=== PATIENT | female | born 1935 | race Caucasian/White ===

== ENCOUNTER 2022-08-04 12:37 | Inpatient (IN) | payer OTHER ==
[~2022-08-04] VITALS: Ht 154.9 cm; Wt 54.9 kg
[~2022-08-04 12:37] MED LIST: FERR-69 PO; OXYB5TAB16 PO; PRAV40TA PO
[2022-08-04 12:45] VITALS: BP_SYST 138
[2022-08-04] MEDS ORDERED: ONDANSETRON HCL 4 MG/2 ML VIAL IVP ONE (13:45)
[2022-08-04] MEDS ORDERED: MAG HYDROX/AL HYDROX/SIMETH 30 ML, DICYCLOMINE HCL 20 MG, LIDOCAINE VISCOUS 2% 15ML (PO... PO ONE ×3 (13:45)
[2022-08-04] MEDS ORDERED: NACL 0.9% 1,000 ML IV ONE ×2 (13:45→16:00)
[2022-08-04 13:59] LABS: BASOPHILS % (AUTO) 0.4 % (0.0-2.0); EOSINOPHILS # (AUTO) 0.1 K/uL (0.0-0.4); EOSINOPHILS % (AUTO) 1.6 % (0.0-4.0); HEMATOCRIT 40.1 % (36-48); LYMPHOCYTES # (AUTO) 1.9 K/uL (1.0-5.5); LYMPHOCYTES % (AUTO) 21.7 % (20.5-51.5); MEAN CORPUSCULAR VOLUME 83 fL (79.0-98.0); MONOCYTES # (AUTO) 0.7 K/uL (0.0-1.0); MONOCYTES % (AUTO) 7.5 % (1.7-9.3); NEUTROPHILS # (AUTO) 6.1 K/uL (1.8-7.7); NEUTROPHILS % (AUTO) 68.8 % (40.0-70.0); PLATELET COUNT (AUTO) 222 K/uL (130-430); RED BLOOD CELL COUNT(AUTO) 4.86 MIL/uL (4.2-6.2); RED CELL DISTRIBUTION WIDTH 14.3 % (9.0-15.0); WHITE BLOOD COUNT (AUTO) 8.8 K/uL (4.8-10.8)
[2022-08-04 14:37] LABS: ANION GAP 9 (5-15); CALCIUM 9.6 mg/dL (8.4-11.0); CHLORIDE 104 mmol/L (98-107); CREATININE 0.92 mg/dL (0.55-1.30); GLUCOSE 89 mg/dL (70-99); POTASSIUM 4.3 mmol/L (3.5-5.1); UREA NITROGEN, BLOOD 17 mg/dL (8-21)
[2022-08-04 14:47] LABS: BILIRUBIN,URINE NEGATIVE (NEGATIVE); CLARITY/URINE SL CLOUDY (CLEAR); COLOR,URINE YELLOW (YELLOW); GLUCOSE,URINE NEGATIVE (NEGATIVE); KETONES,URINE NEGATIVE (NEGATIVE); LEUKOCYTE ESTERASE ,URINE 2+ (NEGATIVE); NITRITE, URINE NEGATIVE (NEGATIVE); PROTEIN URINE NEGATIVE (NEGATIVE); UROBILINOGEN,URINE 0.2 (0.2-1.0)
[2022-08-04 14:52] LABS: ALANINE AMINOTRANSFERASE 25 U/L (12-78); ALBUMIN 3.6 g/dL (3.4-4.8); ASPARTATE AMINOTRANSFERASE 19 U/L (10-37); TOTAL BILIRUBIN 0.3 mg/dL (0.0-1.0)
[2022-08-04 15:04] LABS: BLOOD, URINE TRACE (NEGATIVE)
[2022-08-04 15:05] LABS: BACTERIA,URINE FEW /HPF (None Seen); RBC,URINE NONE SEEN /HPF (0-3)
[2022-08-04 15:06] LABS: MUCUS,URINE None Seen /LPF (None Seen); URINE AMORPHOUS PHOSPHATES 2+ /HPF (None Seen)
[2022-08-04] MEDS ORDERED: MORPHINE 2 MG/ML INJ. SYRINGE IVP ONE (16:00)
[2022-08-04 16:01] LABS: LIPASE 6221 U/L (73-393)
[2022-08-04] MEDS ORDERED: ONDANSETRON HCL 4 MG/2 ML VIAL ONE (20:50)
[2022-08-04 22:00] VITALS: BP_SYST 123
[2022-08-04] MEDS: D5/0.45 NS 1,000 ML IV SCH (22:55)
[2022-08-04] MEDS: MORPHINE 2 MG/ML INJ. SYRINGE IVP PRN (22:57)
[2022-08-05 03:25] VITALS: BP_SYST 118
[2022-08-05 08:00] VITALS: BP_SYST 125
[2022-08-05] MEDS: D5/0.45 NS 1,000 ML IV SCH ×2 (10:26→20:51)
[2022-08-05] MEDS ORDERED: MORPHINE 4 MG INJ. 4 MG/ML VIAL IVP PRN (11:00)
[2022-08-05] MEDS ORDERED: MORPHINE 2 MG/ML INJ. SYRINGE IVP PRN (11:00)
[2022-08-05] MEDS ORDERED: NALOXONE HCL 0.4 MG/ML AMP (NARCAN) IVP PRN (11:00)
[2022-08-05] MEDS ORDERED: ONDANSETRON HCL 4 MG/2 ML VIAL IVP PRN (11:00)
[2022-08-05] MEDS ORDERED: LORazepam 2 MG/ML VIAL IVP PRN (11:00)
[2022-08-05] MEDS: MORPHINE 2 MG/ML INJ. SYRINGE IVP PRN ×2 (11:25→23:09)
[2022-08-05 11:50] VITALS: BP_SYST 127
[2022-08-05 11:53] LABS: AMYLASE 286 U/L (0-100); ANION GAP 7 (5-15); CALCIUM 8.7 mg/dL (8.4-11.0); CHLORIDE 104 mmol/L (98-107); CREATININE 0.84 mg/dL (0.55-1.30); GLUCOSE 101 mg/dL (70-99); POTASSIUM 3.6 mmol/L (3.5-5.1); UREA NITROGEN, BLOOD 8 mg/dL (8-21)
[2022-08-05] MEDS: cefTRIAXone 1 GM IVPB PREMIX 50 ML IV SCH (14:14)
[2022-08-05 14:25] LABS: BASOPHILS % (AUTO) 0.3 % (0.0-2.0); EOSINOPHILS # (AUTO) 0.1 K/uL (0.0-0.4); EOSINOPHILS % (AUTO) 2.8 % (0.0-4.0); HEMATOCRIT 37.7 % (36-48); LYMPHOCYTES # (AUTO) 1.3 K/uL (1.0-5.5); LYMPHOCYTES % (AUTO) 24.1 % (20.5-51.5); MEAN CORPUSCULAR VOLUME 83 fL (79.0-98.0); MONOCYTES # (AUTO) 0.4 K/uL (0.0-1.0); MONOCYTES % (AUTO) 7.3 % (1.7-9.3); NEUTROPHILS # (AUTO) 3.5 K/uL (1.8-7.7); NEUTROPHILS % (AUTO) 65.5 % (40.0-70.0); PLATELET COUNT (AUTO) 199 K/uL (130-430); RED BLOOD CELL COUNT(AUTO) 4.51 MIL/uL (4.2-6.2); RED CELL DISTRIBUTION WIDTH 14.5 % (9.0-15.0); WHITE BLOOD COUNT (AUTO) 5.3 K/uL (4.8-10.8)
[2022-08-05 15:32] LABS: CHOLESTEROL 160 mg/dL (<200); HDL CHOLESTEROL 59 mg/dL (>55); LDL CHOLESTEROL 80 mg/dL (<100); TRIGLYCERIDES 126 mg/dL (30-150)
[2022-08-05 15:33] LABS: LIPASE 1989 U/L (73-393)
[2022-08-05 16:00] VITALS: BP_SYST 136
[2022-08-05] MEDS ORDERED: PRAV40TA63 PO (18:32)
[2022-08-05 19:45] VITALS: BP_SYST 130
[2022-08-06] MEDS: D5/0.45 NS 1,000 ML IV SCH ×3 (00:45→16:45)
[2022-08-06 01:04] VITALS: BP_SYST 138
[2022-08-06 07:45] VITALS: BP_SYST 154
[2022-08-06] MEDS: MORPHINE 2 MG/ML INJ. SYRINGE IVP PRN ×2 (10:35→20:53)
[2022-08-06] MEDS: cefTRIAXone 1 GM IVPB PREMIX 50 ML IV SCH (10:36)
[2022-08-06 11:55] LABS: ALANINE AMINOTRANSFERASE 28 U/L (12-78); AMYLASE 398 U/L (0-100); ANION GAP 10 (5-15); ASPARTATE AMINOTRANSFERASE 23 U/L (10-37); CHLORIDE 104 mmol/L (98-107); CREATININE 0.68 mg/dL (0.55-1.30); GLUCOSE 93 mg/dL (70-99); POTASSIUM 3.7 mmol/L (3.5-5.1); TOTAL BILIRUBIN 0.4 mg/dL (0.0-1.0); UREA NITROGEN, BLOOD 7 mg/dL (8-21)
[2022-08-06 12:10] VITALS: BP_SYST 113
[2022-08-06 15:47] LABS: BASOPHILS % (AUTO) 0.2 % (0.0-2.0); EOSINOPHILS # (AUTO) 0.2 K/uL (0.0-0.4); EOSINOPHILS % (AUTO) 2.8 % (0.0-4.0); HEMATOCRIT 38.6 % (36-48); LYMPHOCYTES # (AUTO) 1.5 K/uL (1.0-5.5); LYMPHOCYTES % (AUTO) 20.4 % (20.5-51.5); MEAN CORPUSCULAR VOLUME 84 fL (79.0-98.0); MONOCYTES # (AUTO) 0.6 K/uL (0.0-1.0); MONOCYTES % (AUTO) 8.2 % (1.7-9.3); NEUTROPHILS % (AUTO) 68.4 % (40.0-70.0); PLATELET COUNT (AUTO) 225 K/uL (130-430); RED BLOOD CELL COUNT(AUTO) 4.61 MIL/uL (4.2-6.2); RED CELL DISTRIBUTION WIDTH 14.3 % (9.0-15.0); WHITE BLOOD COUNT (AUTO) 7.3 K/uL (4.8-10.8)
[2022-08-06 16:05] VITALS: BP_SYST 104
[2022-08-06 18:53] LABS: LIPASE 3783 U/L (73-393)
[2022-08-06 20:00] VITALS: BP_SYST 118
[2022-08-07] VITALS: BP_SYST 122
[2022-08-07] MEDS: D5/0.45 NS 1,000 ML IV SCH ×3 (01:56→18:06)
[2022-08-07 07:44] LABS: BASOPHILS % (AUTO) 0.3 % (0.0-2.0); EOSINOPHILS # (AUTO) 0.2 K/uL (0.0-0.4); EOSINOPHILS % (AUTO) 2.3 % (0.0-4.0); HEMATOCRIT 38.4 % (36-48); LYMPHOCYTES # (AUTO) 1.9 K/uL (1.0-5.5); LYMPHOCYTES % (AUTO) 20.2 % (20.5-51.5); MEAN CORPUSCULAR VOLUME 82 fL (79.0-98.0); MONOCYTES # (AUTO) 0.8 K/uL (0.0-1.0); MONOCYTES % (AUTO) 8.9 % (1.7-9.3); NEUTROPHILS # (AUTO) 6.4 K/uL (1.8-7.7); NEUTROPHILS % (AUTO) 68.3 % (40.0-70.0); PLATELET COUNT (AUTO) 222 K/uL (130-430); RED CELL DISTRIBUTION WIDTH 13.7 % (9.0-15.0); WHITE BLOOD COUNT (AUTO) 9.3 K/uL (4.8-10.8)
[2022-08-07 08:00] VITALS: BP_SYST 146
[2022-08-07 08:38] LABS: ALBUMIN 3.3 g/dL (3.4-4.8); AMYLASE 294 U/L (0-100); ANION GAP 10 (5-15); ASPARTATE AMINOTRANSFERASE 25 U/L (10-37); CALCIUM 9.2 mg/dL (8.4-11.0); CHLORIDE 101 mmol/L (98-107); CREATININE 0.69 mg/dL (0.55-1.30); GLUCOSE 118 mg/dL (70-99); TOTAL BILIRUBIN 0.3 mg/dL (0.0-1.0); UREA NITROGEN, BLOOD 9 mg/dL (8-21)
[2022-08-07 09:01] LABS: ALANINE AMINOTRANSFERASE 26 U/L (12-78); C-REACTIVE PROTEIN QUANT 1.4 mg/dL (0-0.5)
[2022-08-07 11:33] VITALS: BP_SYST 125
[2022-08-07] MEDS: cefTRIAXone 1 GM IVPB PREMIX 50 ML IV SCH (12:42)
[2022-08-07 13:11] LABS: ERYTHROCYTE SEDIMENTATION RATE 30 MM/HR (0-20)
[2022-08-07 15:19] LABS: LIPASE 4132 U/L (73-393)
[2022-08-07 15:40] VITALS: BP_SYST 115
[2022-08-07] MEDS ORDERED: ACETAMINOPHEN 325 MG TABLET PO PRN (16:00)
[2022-08-07 20:55] VITALS: BP_SYST 137
[2022-08-08] VITALS (9 sets, daily range): BP systolic 108–157
[2022-08-08] MEDS: MORPHINE 2 MG/ML INJ. SYRINGE IVP PRN ×3 (02:48→20:46)
[2022-08-08] MEDS: D5/0.45 NS 1,000 ML IV SCH ×2 (08:45→18:29)
[2022-08-08] MEDS: cefTRIAXone 1 GM IVPB PREMIX 50 ML IV SCH (13:04)
[2022-08-09 00:36] VITALS: BP_SYST 134
[2022-08-09] MEDS: D5/0.45 NS 1,000 ML IV SCH ×3 (00:45→17:08)
[2022-08-09] MEDS: MORPHINE 2 MG/ML INJ. SYRINGE IVP PRN ×2 (05:38→09:55)
[2022-08-09 08:00] VITALS: BP_SYST 141
[2022-08-09] MEDS ORDERED: NALOXONE HCL 0.4 MG/ML AMP (NARCAN) IVP PRN (11:30)
[2022-08-09 12:00] VITALS: BP_SYST 133
[2022-08-09] MEDS: cefTRIAXone 1 GM IVPB PREMIX 50 ML IV SCH (12:17)
[2022-08-09 16:00] VITALS: BP_SYST 146
[2022-08-09] MEDS: HYDROcodone/ACETAMIN 5-325 MG TAB (NORCO/ VICODIN) PO PRN (17:31)
[2022-08-09 20:00] VITALS: BP_SYST 120
[2022-08-10] VITALS: BP_SYST 151
[2022-08-10] MEDS: D5/0.45 NS 1,000 ML IV SCH ×3 (00:45→20:29)
[2022-08-10 01:26] VITALS: BP_SYST 177
[2022-08-10] MEDS ORDERED: MAG-AL HYDROX/SIMETH 30 ML UDC PO PRN (10:15)
[2022-08-10 12:00] VITALS: BP_SYST 107
[2022-08-10] MEDS: cefTRIAXone 1 GM IVPB PREMIX 50 ML IV SCH (12:54)
[2022-08-10 16:00] VITALS: BP_SYST 139
[2022-08-10] MEDS ORDERED: NALOXONE HCL 0.4 MG/ML AMP (NARCAN) IVP PRN (17:45)
[2022-08-10] MEDS ORDERED: HYDROcodone/ACETAMIN 5-325 MG TAB (NORCO/ VICODIN) PO PRN (17:45)
[2022-08-10] MEDS ORDERED: HYDROcodone/ACETAMIN 7.5-325 MG TAB PO PRN (17:45)
[2022-08-10 20:00] VITALS: BP_SYST 117
[2022-08-11 00:40] VITALS: BP_SYST 150
[2022-08-11] MEDS: D5/0.45 NS 1,000 ML IV SCH (00:45)
[2022-08-11] MEDS: HYDROcodone/ACETAMIN 5-325 MG TAB (NORCO/ VICODIN) PO PRN ×2 (01:19→08:35)
[2022-08-11 08:00] VITALS: BP_SYST 122
[2022-08-11 11:25] VITALS: BP_SYST 130; BP_SYST 139
[2022-08-11] MEDS ORDERED: ANT30 PO (12:55)
[2022-08-11] MEDS ORDERED: ONDA-8 TL (12:55)
[2022-08-11] MEDS ORDERED: HYDR-3921 PO (12:56)
[2022-08-11] MEDS ORDERED: DOCU-144 PO (12:57)
[2022-08-11] MEDS ORDERED: HYDROcodone/ACETAMIN 7.5-325 MG TAB PO PRN (13:00)
[2022-08-11] MEDS: cefTRIAXone 1 GM IVPB PREMIX 50 ML IV SCH (13:13)
[2022-08-11 15:10] VITALS: BP_SYST 132
[2022-08-11 15:33] VITALS: BP_SYST 122
== END 2022-08-11 17:54 | disposition home or self-care (01) | DRG 689 ==
LOC: SED 12:37 → SMU 16:40
PROVIDERS: ADMIT Internal Medicine; ATTEND Internal Medicine
PROC: 02PYX3Z Removal of Infusion Device from Great Vessel, External Approach (ICD-10-PCS; principal; 2022-08-11)
DX: N39.0 Urinary tract infection, site not specified (principal); K85.90 Acute pancreatitis without necrosis or infection, unspecified; D64.9 Anemia, unspecified; E78.5 Hyperlipidemia, unspecified; E78.00 Pure hypercholesterolemia, unspecified; Z96.642 Presence of left artificial hip joint; N80.9 Endometriosis, unspecified; N32.81 Overactive bladder; Z20.822 Contact with and (suspected) exposure to COVID-19; C80.1 Malignant (primary) neoplasm, unspecified; K86.89 Other specified diseases of pancreas; Z90.49 Acquired absence of other specified parts of digestive tract; Z87.891 Personal history of nicotine dependence
CPT/HCPCS: 36415; 74018; 76376; 76705; 80048; 80053; 80061; 81000; 82150; 82787; 83690; 85025; 85651-TC; 86038; 86140; 86301; 87086; 93005; 96361; 96374; 96375; 99285; J0696; J2001; J2270; J2405; Q9967

== ENCOUNTER → 2022-08-21 | Emergency (ER) | payer OTHER ==
[~2022-08-21] VITALS: Ht 152.4 cm; Wt 55.3 kg
[~2022-08-21] MED LIST changes: +ANT30 PO; +DOCU-144 PO; -FERR-69 PO; +HYDR-3921 PO; +ONDA-8 TL; -OXYB5TAB16 PO; -PRAV40TA PO; +PRAV40TA63 PO
[2022-08-21 09:09] VITALS: BP_SYST 147
--- NOTE | 2022-08-21 09:13 | NUR ---
Patient triaged and placed in waiting room. VSS and patient appears in no acute distress at this time. Accompanied by FAMILY, awaiting available bed, and MD notified of need for MSE.
== END | disposition left against medical advice (07) ==
LOC: SED 09:02
DX: R07.9 Chest pain, unspecified (principal); R10.13 Epigastric pain; Z53.21 Procedure and treatment not carried out due to patient leaving prior to being seen by health care provider
CPT/HCPCS: 93005